=== PATIENT | female | born 1995 | race Caucasian/White ===

== ENCOUNTER → 2019-03-22 | Outpatient (REF) | payer OTHER, MEDICAID ==
[2019-03-22 13:38] LABS: BASO % 0.4 % (0.0-1.0); EOS # 0.1 10^3/uL (0.0-0.50); EOS % 1.7 % (0.0-3.0); HEMATOCRIT 40.5 % (36.0-47.0); HEMOGLOBIN 13.8 g/dl (12.0-15.5); LYMPH # 1.9 10^3/uL (1.5-6.5); LYMPH % 38.9 % (24.0-44.0); MEAN CORPUSCULAR HEMOGLOBIN 26.9 pg (27.0-33.0); MEAN CORPUSCULAR HGB CONC 34.1 g/dl (32.0-36.5); MEAN CORPUSCULAR VOLUME 78.9 fl (80.0-96.0); MONO # 0.4 10^3/uL (0.0-0.8); MONO % 8.3 % (0.0-5.0); NEUTROPHILS # 2.4 10^3/uL (1.8-7.7); NEUTROPHILS % 50.5 % (36.0-66.0); PLATELET COUNT, AUTOMATED 256 10^3/uL (150-450); RED BLOOD COUNT 5.13 10^6/uL (4.00-5.40); WHITE BLOOD COUNT 4.8 10^3/uL (4.0-10.0)
[2019-03-22 13:50] LABS: ALBUMIN 3.7 GM/DL (3.2-5.2); ALT/SGPT 14 U/L (12-78); BILIRUBIN,TOTAL 0.6 MG/DL (0.2-1.0); BLOOD UREA NITROGEN 8 MG/DL (7-18); CALCIUM LEVEL 8.2 MG/DL (8.5-10.1); CARBON DIOXIDE LEVEL 28 MEQ/L (21-32); CHLORIDE LEVEL 108 MEQ/L (98-107); CHOLESTEROL LEVEL 133 MG/DL (<200); CHOLESTEROL RISK RATIO 3.022 (<5); CREATININE FOR GFR 0.72 MG/DL (0.55-1.30); GLOMERULAR FILTRATION RATE > 60.0 (>60); GLUCOSE, FASTING 79 MG/DL (70-100); HDL CHOLESTEROL 44 MG/DL (>40); LDL CHOLESTEROL 75 MG/DL (<100); NON-HDL-C 89 MG/DL; POTASSIUM SERUM 4.2 MEQ/L (3.5-5.1); SODIUM LEVEL 140 MEQ/L (136-145); TOTAL PROTEIN 7.4 GM/DL (6.4-8.2); TRIGLYCERIDES LEVEL 68 MG/DL (<150)
[2019-03-22 13:57] LABS: TOTAL 25(OH) VITAMIN D 21.1 NG/ML (30.0-100.0)
[2019-03-22 14:16] LABS: HEMOGLOBIN A1c 4.9 %
[2019-03-22 14:35] LABS: APPEARANCE, URINE HAZY (CLEAR); BACTERIA, URINE AUTO NEGATIVE (NEGATIVE); BILIRUBIN, URINE AUTO NEGATIVE (NEGATIVE); BLOOD, URINE BLOOD 3+ (NEGATIVE); COLOR, URINE YELLOW (YELLOW); GLUCOSE, URINE (UA) AUTO NEGATIVE (NEGATIVE); KETONE, URINE AUTO NEGATIVE (NEGATIVE); LEUKOCYTE ESTERASE, URINE AUTO 1+ (NEGATIVE); MUCUS, URINE SMALL (NEGATIVE); NITRITE, URINE AUTO NEGATIVE (NEGATIVE); PROTEIN, URINE AUTO NEGATIVE (NEGATIVE); RBC, URINE AUTO 1 /HPF (0-3); SPECIFIC GRAVITY URINE AUTO 1.011 (1.002-1.035); SQUAMOUS EPITHELIAL CELL UR AU 6 /HPF (0-6); UROBILINOGEN, URINE AUTO 0.2 mg/dL (0.0-2.0); WBC, URINE AUTO 4 /HPF (0-3)
[2019-03-26 00:07] LABS: Lyme Disease IgG Ab 18 kDa Ban Absent (.); Lyme Disease IgG Ab 23 kDa Ban Absent (.); Lyme Disease IgG Ab 28 kDa Ban Absent (.); Lyme Disease IgG Ab 30 kDa Ban Absent (.); Lyme Disease IgG Ab 39 kDa Ban Absent (.); Lyme Disease IgG Ab 41 kDa Ban Present (.); Lyme Disease IgG Ab 45 kDa Ban Absent (.); Lyme Disease IgG Ab 58 kDa Ban Absent (.); Lyme Disease IgG Ab 66 kDa Ban Absent (.); Lyme Disease IgG Ab 93 kDa Ban Absent (.); Lyme Disease IgG West Blot Int Negative (.); Lyme Disease IgG/IgM Antibodie <0.91 ISR (0.00-0.90); Lyme Disease IgM Ab 23 kDa Ban Present (.); Lyme Disease IgM Ab 39 kDa Ban Absent (.); Lyme Disease IgM Ab 41 kDa Ban Absent (.); Lyme Disease IgM West Blot Int Negative (.)
== END ==
LOC: M LAB REF 12:24
PROVIDERS: ATTEND Family Medicine
DX: Z13.228 Encounter for screening for other metabolic disorders (principal)

== ENCOUNTER → 2019-06-25 | Outpatient (REF) | payer OTHER ==
[~2019-06-25] MED LIST: LEVO50TA5 PO; VITA500045 PO
== END ==
LOC: M LAB REF 13:56
PROVIDERS: ATTEND Advanced Practice Midwife
DX: Z12.4 Encounter for screening for malignant neoplasm of cervix (principal)

== ENCOUNTER → 2019-07-03 | Outpatient (REF) | payer OTHER, MEDICAID ==
[2019-07-03 17:52] LABS: ALBUMIN 3.8 GM/DL (3.2-5.2); ALT/SGPT 16 U/L (12-78); BASO % 0.6 % (0.0-1.0); BILIRUBIN,TOTAL 0.5 MG/DL (0.2-1.0); BLOOD UREA NITROGEN 12 MG/DL (7-18); CALCIUM LEVEL 8.7 MG/DL (8.5-10.1); CARBON DIOXIDE LEVEL 26 MEQ/L (21-32); CHLORIDE LEVEL 106 MEQ/L (98-107); CHOLESTEROL LEVEL 169 MG/DL (<200); CREATININE FOR GFR 0.64 MG/DL (0.55-1.30); EOS # 0.1 10^3/uL (0.0-0.5); FREE T4 1.13 NG/DL (0.76-1.46); GLOMERULAR FILTRATION RATE > 60.0 (>60); GLUCOSE, FASTING 80 MG/DL (70-100); HDL CHOLESTEROL 48 MG/DL (>40); HEMATOCRIT 40.8 % (36.0-47.0); HEMOGLOBIN 13.7 g/dl (12.0-15.5); LDL CHOLESTEROL 105 MG/DL (<100); LYMPH # 2.5 10^3/uL (1.5-5.0); LYMPH % 50.8 % (24.0-44.0); MEAN CORPUSCULAR HEMOGLOBIN 26.3 pg (27.0-33.0); MEAN CORPUSCULAR HGB CONC 33.6 g/dl (32.0-36.5); MEAN CORPUSCULAR VOLUME 78.3 fl (80.0-96.0); MONO # 0.4 10^3/uL (0.0-0.8); MONO % 7.2 % (0.0-5.0); NEUTROPHILS % 40.2 % (36.0-66.0); NON-HDL-C 121 MG/DL; PLATELET COUNT, AUTOMATED 269 10^3/uL (150-450); POTASSIUM SERUM 4.3 MEQ/L (3.5-5.1); RED BLOOD COUNT 5.21 10^6/uL (4.00-5.40); SODIUM LEVEL 140 MEQ/L (136-145); TOTAL 25(OH) VITAMIN D 63.4 NG/ML (30.0-100.0); TOTAL PROTEIN 7.2 GM/DL (6.4-8.2); TRIGLYCERIDES LEVEL 80 MG/DL (<150)
[2019-07-03 18:17] LABS: HEMOGLOBIN A1c 4.7 %
[2019-07-09 00:06] LABS: Lyme Disease IgG Ab 18 kDa Ban Present (.); Lyme Disease IgG Ab 23 kDa Ban Absent (.); Lyme Disease IgG Ab 28 kDa Ban Absent (.); Lyme Disease IgG Ab 30 kDa Ban Absent (.); Lyme Disease IgG Ab 39 kDa Ban Absent (.); Lyme Disease IgG Ab 41 kDa Ban Present (.); Lyme Disease IgG Ab 45 kDa Ban Absent (.); Lyme Disease IgG Ab 58 kDa Ban Absent (.); Lyme Disease IgG Ab 66 kDa Ban Absent (.); Lyme Disease IgG Ab 93 kDa Ban Absent (.); Lyme Disease IgG West Blot Int Negative (.); Lyme Disease IgG/IgM Antibodie <0.91 ISR (0.00-0.90); Lyme Disease IgM Ab 23 kDa Ban Present (.); Lyme Disease IgM Ab 39 kDa Ban Absent (.); Lyme Disease IgM Ab 41 kDa Ban Absent (.); Lyme Disease IgM Ab Quantitati 1.02 index (0.00-0.79); Lyme Disease IgM West Blot Int Negative (.)
== END ==
LOC: M LAB REF 16:44
PROVIDERS: ATTEND Family Medicine
DX: Z13.228 Encounter for screening for other metabolic disorders (principal)

== ENCOUNTER → 2019-09-03 | Outpatient (REF) | payer OTHER, MEDICAID ==
[2019-09-03 16:56] LABS: FREE T4 1.13 NG/DL (0.76-1.46); THYROID STIMULATING HORMONE 7.27 uIU/ML (0.358-3.740)
== END ==
LOC: M LAB REF 16:28
PROVIDERS: ATTEND Family Medicine
DX: E03.9 Hypothyroidism, unspecified (principal)

== ENCOUNTER → 2020-08-05 | Outpatient (CLI) | payer OTHER, MEDICAID ==
[~2020-08-05] MED LIST changes: +D31000TA2 PO
== END ==
LOC: M LABSMTC 13:06
PROVIDERS: ATTEND Anesthesiology
DX: Z01.812 Encounter for preprocedural laboratory examination (principal); Z20.828 Contact with and (suspected) exposure to other viral communicable diseases
CPT/HCPCS: C9803; U0003

== ENCOUNTER 2020-08-10 07:48 | Day surgery (SDC) | payer OTHER ==
[~2020-08-10] VITALS: Ht 162.6 cm; Wt 75.3 kg
[~2020-08-10 07:48] MED LIST changes: +LR 1,000 ML IV ONE
[2020-08-10] MEDS ORDERED: CIPRODEX OTIC SUSP 7.5ML As Ordered ONE (09:13)
[2020-08-10] MEDS ORDERED: MIDAZOLAM INJ 2MG/2ML VIAL (J2250 PER 1MG) As Ordered ONE (09:13)
[2020-08-10] MEDS ORDERED: propofoL 200 MG/20 ML VIAL As Ordered ONE (09:14)
[2020-08-10] MEDS ORDERED: fentaNYL 100 MCG/2 ML INJECTION (J3010) As Ordered ONE (09:14)
[2020-08-10] MEDS ORDERED: KETOROLAC 60MG 2ML VIAL As Ordered ONE (09:41)
[2020-08-10] MEDS ORDERED: ONDANSETRON 4MG/2ML VIAL As Ordered ONE (09:41)
[2020-08-10] MEDS ORDERED: dexameTHASONE 4 MG/ML 1ML VIAL (J1100 PER 1MG) As Ordered ONE (09:41)
[2020-08-10] MEDS ORDERED: oxyCODONE 5MG TAB PO PRN (10:15)
[2020-08-10] MEDS ORDERED: ONDANSETRON 4MG/2ML VIAL IV PRN (10:15)
[2020-08-10] MEDS ORDERED: fentaNYL 100 MCG/2 ML INJECTION (J3010) IV PRN (10:15)
[2020-08-10] MEDS ORDERED: LR 1,000 ML IV SCH (10:15)
[2020-08-10] MEDS ORDERED: HYDROMORPHONE HCL 0.5 MG/ 0.5 ML SYRINGE (J1170 PER 1) IV PRN (10:15)
[2020-08-10 10:46] VITALS: BP 142/97
[2020-08-10] MEDS ORDERED: IBUPROFEN 800 MG TAB PO PRN (11:15)
== END 2020-08-10 11:37 | disposition home or self-care (01) ==
LOC: M SDC 07:48
PROVIDERS: ATTEND Specialist
DX: H65.22 Chronic serous otitis media, left ear (principal); E03.9 Hypothyroidism, unspecified; F41.9 Anxiety disorder, unspecified; Z91.030 Bee allergy status; Z88.8 Allergy status to other drugs, medicaments and biological substances; Z91.018 Allergy to other foods; Z79.899 Other long term (current) drug therapy
CPT/HCPCS: 69436; 81025; J1100; J1885; J2250; J2405; J3010

== ENCOUNTER → 2020-09-07 | Outpatient (REF) | payer OTHER, MEDICAID ==
[~2020-09-07] MED LIST changes: -LR 1,000 ML IV ONE
[2020-09-07 18:14] LABS: BASO % 0.3 % (0.0-1.0); EOS # 0.1 10^3/uL (0.0-0.5); EOS % 1.6 % (0.0-3.0); HEMATOCRIT 42.4 % (36.0-47.0); HEMOGLOBIN 13.6 g/dl (12.0-15.5); LYMPH # 2.3 10^3/uL (1.5-5.0); LYMPH % 40.1 % (24.0-44.0); MEAN CORPUSCULAR HEMOGLOBIN 26.1 pg (27.0-33.0); MEAN CORPUSCULAR HGB CONC 32.1 g/dl (32.0-36.5); MEAN CORPUSCULAR VOLUME 81.2 fl (80.0-96.0); MONO # 0.5 10^3/uL (0.0-0.8); MONO % 7.8 % (0.0-5.0); NEUTROPHILS # 2.9 10^3/uL (1.5-8.5); NEUTROPHILS % 49.9 % (36.0-66.0); PLATELET COUNT, AUTOMATED 281 10^3/uL (150-450); RED BLOOD COUNT 5.22 10^6/uL (4.00-5.40); WHITE BLOOD COUNT 5.8 10^3/uL (4.0-10.0)
[2020-09-07 18:39] LABS: ALBUMIN 3.7 GM/DL (3.2-5.2); ALT/SGPT 8 U/L (12-78); BILIRUBIN,TOTAL 0.8 MG/DL (0.2-1.0); BLOOD UREA NITROGEN 11 MG/DL (7-18); CALCIUM LEVEL 8.8 MG/DL (8.5-10.1); CARBON DIOXIDE LEVEL 27 MEQ/L (21-32); CHLORIDE LEVEL 106 MEQ/L (98-107); CHOLESTEROL LEVEL 177 MG/DL (<200); CHOLESTEROL RISK RATIO 3.847 (<5); CREATININE FOR GFR 0.76 MG/DL (0.55-1.30); GLOMERULAR FILTRATION RATE > 60.0 (>60); GLUCOSE, FASTING 84 MG/DL (70-100); HDL CHOLESTEROL 46 MG/DL (>40); LDL CHOLESTEROL 110 MG/DL (<100); NON-HDL-C 131 MG/DL; POTASSIUM SERUM 4.8 MEQ/L (3.5-5.1); SODIUM LEVEL 138 MEQ/L (136-145); TOTAL PROTEIN 7.3 GM/DL (6.4-8.2); TRIGLYCERIDES LEVEL 104 MG/DL (<150)
== END ==
LOC: M LAB REF 16:37
PROVIDERS: ATTEND Family Medicine Addiction Medicine
DX: E03.9 Hypothyroidism, unspecified (principal)

== ENCOUNTER → 2021-03-04 | Outpatient (REF) | payer OTHER ==
[2021-03-04 13:49] LABS: HEMATOCRIT 38.1 % (36.0-47.0); MEAN CORPUSCULAR HEMOGLOBIN 27.7 pg (27.0-33.0); MEAN CORPUSCULAR HGB CONC 34.1 g/dl (32.0-36.5); MEAN CORPUSCULAR VOLUME 81.2 fl (80.0-96.0); PLATELET COUNT, AUTOMATED 265 10^3/uL (150-450); RED BLOOD COUNT 4.69 10^6/uL (4.00-5.40); WHITE BLOOD COUNT 5.7 10^3/uL (4.0-10.0)
[2021-03-04 14:40] LABS: FREE T4 1.23 NG/DL (0.76-1.46)
[2021-03-04 16:39] LABS: HIV 1&2 SCREEN CENTAUR NEGATIVE (NEGATIVE)
== END ==
LOC: M PLALAB 11:04
PROVIDERS: ATTEND Advanced Practice Midwife
DX: O99.281 Endocrine, nutritional and metabolic diseases complicating pregnancy, first trimester (principal)

== ENCOUNTER → 2021-04-08 | Outpatient (REF) | payer OTHER ==
[2021-04-08 11:24] LABS: FREE T4 1.18 NG/DL (0.76-1.46); THYROID STIMULATING HORMONE 3.83 uIU/ML (0.358-3.740)
[2021-04-08 12:29] LABS: GC DNA AMPLIFICATION NEGATIVE (NEGATIVE)
== END ==
LOC: M PLALAB 09:12
PROVIDERS: ATTEND Advanced Practice Midwife
DX: O99.281 Endocrine, nutritional and metabolic diseases complicating pregnancy, first trimester (principal)

== ENCOUNTER → 2021-05-20 | Outpatient (CLI) | payer OTHER ==
--- NOTE | 2021-05-20 11:16 | REP ---
INDICATION: ANATOMY. COMPARISON: None. TECHNIQUE: Transabdominal obstetric sonography. FINDINGS: Scanning through the gravid uterus demonstrates a viable single intrauterine gestation in variable lie. motion is observed and heart rate is recorded at 140 beats per minute. A anterior placenta is seen, grade 1, without evidence of placenta previa. Closed cervical length is measured at 4.4 cm transabdominally. No extrauterine abnormality is observed. Amniotic fluid is subjectively normal. No anomaly is seen. The following anatomic structures are identified and felt to be sonographically unremarkable: cranium, choroid plexus, cavum, cerebellum and posterior fossa, face and profile, lungs, four-chamber heart with left and right ventricular outflow tract views, diaphragm, left-sided stomach, abdominal wall cord insertion, three-vessel umbilical cord, kidneys and bladder, spine, and upper and lower extremities. Biometry chart: BPD 4.4 cm, 19 weeks 3 days Head circumference 16.8 cm, 19 weeks 3 days Abdominal circumference 14.4 cm, 19 weeks 5 days Femur length 3.0 cm, 19 weeks 1 day Humeral length 3.0 cm, 19 weeks 5 days HC AC ratio normal 1.17 Cephalic index normal 0.72 Estimated weight 292 g, 0 lb 10 oz IMPRESSION: Viable single intrauterine gestation at 19 weeks 3 days by today's composite sonographic criteria. CHERI by today's sonography October 11, 2021. No complication identified. Expected gestational age estimate from known CHERI of October 12, 2021 is 19 weeks 2 days. anatomic survey is felt to be complete. <Electronically signed by Antonio Martinez > 05/20/21 [id number]
== END ==
LOC: M WHC 09:56
PROVIDERS: ATTEND Advanced Practice Midwife
DX: O99.282 Endocrine, nutritional and metabolic diseases complicating pregnancy, second trimester (principal); Z3A.19 19 weeks gestation of pregnancy

== ENCOUNTER → 2021-06-08 | Outpatient (REF) | payer OTHER | LOC: M PLALAB 11:07 | PROVIDERS: ATTEND Obstetrics & Gynecology | DX: Z36.89 Encounter for other specified antenatal screening (principal); Z3A.22 22 weeks gestation of pregnancy ==

== ENCOUNTER → 2021-07-06 | Outpatient (CLI) | payer OTHER | LOC: M PLALAB 11:22 | PROVIDERS: ATTEND Advanced Practice Midwife | DX: O99.280 Endocrine, nutritional and metabolic diseases complicating pregnancy, unspecified trimester (principal) ==

== ENCOUNTER → 2021-07-06 | Outpatient (CLI) | payer OTHER ==
[2021-07-06 15:22] LABS: HEMATOCRIT 34.4 % (36.0-47.0); HEMOGLOBIN 11.7 g/dl (12.0-15.5); MEAN CORPUSCULAR HEMOGLOBIN 28.1 pg (27.0-33.0); MEAN CORPUSCULAR VOLUME 82.7 fl (80.0-96.0); PLATELET COUNT, AUTOMATED 236 10^3/uL (150-450); RED BLOOD COUNT 4.16 10^6/uL (4.00-5.40); WHITE BLOOD COUNT 7.2 10^3/uL (4.0-10.0)
[2021-07-06 15:53] LABS: FREE T4 1.23 NG/DL (0.76-1.46); THYROID STIMULATING HORMONE 1.38 uIU/ML (0.358-3.740)
== END ==
LOC: M PLALAB 11:19
PROVIDERS: ATTEND Obstetrics & Gynecology
DX: Z36.89 Encounter for other specified antenatal screening (principal); Z3A.22 22 weeks gestation of pregnancy

== ENCOUNTER → 2021-07-27 | Outpatient (CLI) | payer OTHER | LOC: M LAB 08:27 | PROVIDERS: ATTEND Advanced Practice Midwife | DX: O99.810 Abnormal glucose complicating pregnancy (principal); Z3A.00 Weeks of gestation of pregnancy not specified ==

== ENCOUNTER → 2021-09-13 | Outpatient (REF) | payer OTHER | LOC: M SFHCWAGY 13:12 | PROVIDERS: ATTEND Advanced Practice Midwife | DX: Z36.85 Encounter for antenatal screening for Streptococcus B (principal); O99.280 Endocrine, nutritional and metabolic diseases complicating pregnancy, unspecified trimester; Z3A.00 Weeks of gestation of pregnancy not specified ==

== ENCOUNTER 2021-09-29 21:57 | Inpatient (IN) | payer OTHER ==
[~2021-09-29] VITALS: Ht 162.6 cm; Wt 89.0 kg
[2021-09-29] MEDS ORDERED: CARBOPROST TROMETHAMINE 250 MCG/ML AMP IM PRN (22:10)
[2021-09-29] MEDS ORDERED: METHYLERGONOVINE MALEATE 0.2 MG/ML VIAL (J2210) IM PRN (22:10)
[2021-09-29] MEDS ORDERED: OXYTOCIN DRIP 30 UNITS in IV 1 EA IV PRN (22:10)
[2021-09-29] MEDS ORDERED: LIDOCAINE 1% MDV 20ML VIAL INFIL PRN (22:10)
[2021-09-29] MEDS ORDERED: TRANEXAMIC ACID INJection 1,000 MG in NS 100 ML IV PRN (22:10)
[2021-09-29 22:38] LABS: HEMATOCRIT 36.5 % (36.0-47.0); HEMOGLOBIN 12.4 g/dl (12.0-15.5); MEAN CORPUSCULAR HEMOGLOBIN 26.8 pg (27.0-33.0); MEAN CORPUSCULAR VOLUME 78.8 fl (80.0-96.0); PLATELET COUNT, AUTOMATED 224 10^3/uL (150-450); RED BLOOD COUNT 4.63 10^6/uL (4.00-5.40); WHITE BLOOD COUNT 8.5 10^3/uL (4.0-10.0)
[2021-09-29 22:51] VITALS: BP 176/97
[2021-09-29] MEDS ORDERED: LABETALOL 100MG/20ML VIAL IV STA (22:52)
[2021-09-29 22:58] VITALS: BP 176/97
[2021-09-29 23:02] LABS: ALT/SGPT 16 U/L (12-78); BILIRUBIN,TOTAL 0.3 MG/DL (0.2-1.0); CREATININE FOR GFR 0.54 MG/DL (0.55-1.30); GLOMERULAR FILTRATION RATE > 60.0 (>60); LDH LACTATE DEHYDROGENASE 156 U/L (84-246); URIC ACID 3.5 MG/DL (2.6-6.0)
[2021-09-29 23:08] VITALS: BP 141/74
[2021-09-29 23:27] VITALS: BP 130/72
[2021-09-29] MEDS: miSOPROStol 50MCG 1/2 TABLET PO SCH (23:29)
[2021-09-29 23:59] VITALS: BP 147/69
[2021-09-30] VITALS (28 sets, daily range): BP systolic 126–173; BP diastolic 65–93
[2021-09-30 00:11] LABS: TOTAL PROTEIN,RANDOM URINE 28.1 MG/DL (0.0-12.0)
[2021-09-30] MEDS: miSOPROStol 50MCG 1/2 TABLET PO SCH ×3 (03:35→13:05)
[2021-09-30] MEDS ORDERED: LEVOTHYROXINE 125MCG TABLET (0.125MG) PO SCH (06:00)
[2021-09-30] MEDS ORDERED: LR 1,000 ML IV SCH (16:15)
[2021-09-30] MEDS ORDERED: OXYTOCIN DRIP 30 UNITS in IV 1 EA IV SCH (16:15)
[2021-09-30] MEDS ORDERED: ACETAMINOPHEN 500 MG TAB PO PRN (20:25)
[2021-09-30] MEDS ORDERED: DIBUCAINE 1% OINTMENT 30GM TOP PRN (20:25)
[2021-09-30] MEDS ORDERED: OXYTOCIN DRIP 30 UNITS in IV 1 EA IV ONE (20:25)
[2021-09-30] MEDS ORDERED: ACETAMINOPHEN TAB 650MG DOSE (2X325MG) PO PRN (20:25)
[2021-09-30] MEDS ORDERED: RHOGAM 300 MCG (1500 IU) INJ (J2790) IM SCH (20:25)
[2021-09-30] MEDS ORDERED: METHYLERGONOVINE MALEATE 0.2 MG TAB PO PRN (20:25)
[2021-09-30] MEDS ORDERED: DOCUSATE SODIUM 100MG CAPSULE PO PRN (20:25)
[2021-09-30] MEDS ORDERED: MEASLES,MUMPS,RUBELLA VACCINE INJ (MMR-II) (90707) SC SCH (20:25)
[2021-09-30] MEDS ORDERED: IBUPROFEN 600MG TAB PO PRN (20:25)
[2021-09-30] MEDS: IBUPROFEN 800 MG TAB PO PRN (20:46)
[2021-09-30] MEDS ORDERED: NALOXONE INJ 0.4MG/1ML VIAL (J2310 PER 1MG) IV PRN (20:55)
[2021-09-30] MEDS ORDERED: REFRIGERATOR IV KEYS XX PRN (20:55)
[2021-09-30] MEDS ORDERED: ONDANSETRON 4MG/2ML VIAL IV PRN (20:55)
[2021-09-30] MEDS ORDERED: LACTATED RINGER'S 1000 ML IV PRN (20:55)
[2021-09-30] MEDS ORDERED: EPIDURAL/PCA KEYS XX PRN (20:55)
[2021-09-30] MEDS ORDERED: ePHEDrine SULFATE 25 MG/5 ML(5MG/ML) SYRINGE IV PRN (20:55)
[2021-09-30] MEDS ORDERED: FENTANYL/ROPIVACAINE/NACL BAG 100 ML EPIDURAL SCH (20:55)
[2021-09-30] MEDS ORDERED: EPIDURAL COMMENT XX SCH (20:55)
[2021-09-30] MEDS ORDERED: diphenhydrAMINE 50MG/ML VIAL (J1200) IV PRN (20:55)
[2021-10-01] MEDS: LEVOTHYROXINE 125MCG TABLET (0.125MG) PO SCH (05:43)
[2021-10-01 06:00] VITALS: BP 126/79
[2021-10-01] MEDS: PRENATAL VITAMINS CHEWABLE TABLET PO SCH (09:31)
[2021-10-01] MEDS: IBUPROFEN 800 MG TAB PO PRN (09:32)
[2021-10-01 18:00] VITALS: BP 142/70
[2021-10-02 06:00] VITALS: BP 137/86
[2021-10-02] MEDS: LEVOTHYROXINE 125MCG TABLET (0.125MG) PO SCH (06:12)
[2021-10-02] MEDS: PRENATAL VITAMINS CHEWABLE TABLET PO SCH (10:20)
== END 2021-10-02 13:10 | disposition home or self-care (01) | DRG 560 ==
LOC: M LDI 21:57 → M OBS 09-30 22:30
PROVIDERS: ADMIT Advanced Practice Midwife; ATTEND Specialist
PROC: 3E0P7GC Introduction of Other Therapeutic Substance into Female Reproductive, Via Natural or Artificial Opening (ICD-10-PCS; 2021-09-29)
PROC: 10E0XZZ Delivery of Products of Conception, External Approach (ICD-10-PCS; principal; 2021-09-30)
DX: O14.14 Severe pre-eclampsia complicating childbirth (principal); E03.9 Hypothyroidism, unspecified; O99.284 Endocrine, nutritional and metabolic diseases complicating childbirth; Z37.0 Single live birth; Z3A.38 38 weeks gestation of pregnancy

== ENCOUNTER → 2022-06-24 | Outpatient (REF) | payer OTHER ==
[~2022-06-24] MED LIST changes: -D31000TA2 PO; +VITA100093 PO
== END ==
LOC: M LAB REF 16:16
PROVIDERS: ATTEND Family Medicine Addiction Medicine
DX: R30.9 Painful micturition, unspecified (principal)

== ENCOUNTER → 2022-12-13 | Outpatient (REF) | payer OTHER | LOC: M SFHCRHEU 13:50 | PROVIDERS: ATTEND Internal Medicine Rheumatology | DX: R76.8 Other specified abnormal immunological findings in serum (principal); M35.3 Polymyalgia rheumatica; H04.123 Dry eye syndrome of bilateral lacrimal glands; L65.9 Nonscarring hair loss, unspecified ==

== ENCOUNTER → 2022-12-14 | Outpatient (REF) | payer OTHER ==
[2022-12-14 16:34] LABS: BASO % 0.4 % (0.0-1.0); EOS # 0.1 10^3/uL (0.0-0.5); EOS % 1.2 % (0.0-3.0); HEMATOCRIT 40.1 % (36.0-47.0); HEMOGLOBIN 13.2 g/dl (12.0-15.5); LDH LACTATE DEHYDROGENASE 117 U/L (120-246); LYMPH # 2.8 10^3/uL (1.5-5.0); LYMPH % 38.6 % (24.0-44.0); MEAN CORPUSCULAR HGB CONC 32.9 g/dl (32.0-36.5); MEAN CORPUSCULAR VOLUME 79.1 fl (80.0-96.0); MONO # 0.4 10^3/uL (0.0-0.8); MONO % 5.9 % (2.0-8.0); NEUTROPHILS # 3.9 10^3/uL (1.5-8.5); NEUTROPHILS % 53.5 % (36.0-66.0); PLATELET COUNT, AUTOMATED 299 10^3/uL (150-450); RED BLOOD COUNT 5.07 10^6/uL (4.00-5.40); WHITE BLOOD COUNT 7.3 10^3/uL (4.0-10.0)
[2022-12-14 17:01] LABS: ERYTHROCYTE SEDIMENTATION RATE 24 mm/hr (0-20)
[2022-12-14 17:02] LABS: ALBUMIN 3.5 G/DL (3.2-5.2); ALKALINE PHOSPHATASE 58 U/L (46-116); ALT/SGPT 25 U/L (7.0-40); AST/SGOT 15 U/L (<34); BILIRUBIN,TOTAL 0.4 MG/DL (0.3-1.2); BLOOD UREA NITROGEN 11 MG/DL (9-23); CARBON DIOXIDE LEVEL 26 MMOL/L (20-31); CHLORIDE LEVEL 105 MMOL/L (98-107); CREATININE FOR GFR 0.65 MG/DL (0.55-1.30); GLOMERULAR FILTRATION RATE > 60.0 (>60); GLUCOSE, FASTING 95 MG/DL (60-100); POTASSIUM SERUM 4.3 MMOL/L (3.5-5.1); SODIUM LEVEL 137 MMOL/L (136-145)
[2022-12-14 19:05] LABS: CPK CREATINE PHOSPHOKINASE 55 U/L (34-145)
== END ==
LOC: M SFHCRHEU 14:12
PROVIDERS: ATTEND Internal Medicine Rheumatology
DX: R76.8 Other specified abnormal immunological findings in serum (principal); M35.3 Polymyalgia rheumatica; L65.9 Nonscarring hair loss, unspecified

== ENCOUNTER → 2022-12-14 | Outpatient (CLI) | payer OTHER | LOC: M ADAMS 14:16 | PROVIDERS: ATTEND Internal Medicine Rheumatology | DX: R76.8 Other specified abnormal immunological findings in serum (principal); M35.3 Polymyalgia rheumatica; H04.123 Dry eye syndrome of bilateral lacrimal glands; L65.9 Nonscarring hair loss, unspecified ==

== ENCOUNTER → 2023-08-02 | Outpatient (REF) | payer OTHER ==
[2023-08-02 13:34] LABS: BASO % 0.3 % (0.0-1.0); EOS # 0.1 10^3/uL (0.0-0.5); EOS % 1.4 % (0.0-3.0); HEMATOCRIT 39.9 % (36.0-47.0); HEMOGLOBIN 13.3 g/dl (12.0-15.5); LYMPH # 2.3 10^3/uL (1.5-5.0); LYMPH % 30.9 % (24.0-44.0); MEAN CORPUSCULAR HEMOGLOBIN 26.5 pg (27.0-33.0); MEAN CORPUSCULAR HGB CONC 33.3 g/dl (32.0-36.5); MEAN CORPUSCULAR VOLUME 79.5 fl (80.0-96.0); MONO # 0.6 10^3/uL (0.0-0.8); MONO % 7.5 % (2.0-8.0); NEUTROPHILS # 4.4 10^3/uL (1.5-8.5); NEUTROPHILS % 59.8 % (36.0-66.0); PLATELET COUNT, AUTOMATED 293 10^3/uL (150-450); RED BLOOD COUNT 5.02 10^6/uL (4.00-5.40); WHITE BLOOD COUNT 7.3 10^3/uL (4.0-10.0)
[2023-08-02 13:36] LABS: APPEARANCE, URINE CLOUDY (CLEAR); BACTERIA, URINE AUTO 1+ (NEGATIVE); BILIRUBIN, URINE AUTO NEGATIVE (NEGATIVE); BLOOD, URINE BLOOD 1+ (NEGATIVE); COLOR, URINE AMBER (YELLOW); GLUCOSE, URINE (UA) AUTO NEGATIVE (NEGATIVE); KETONE, URINE AUTO TRACE mg/dL (NEGATIVE); LEUKOCYTE ESTERASE, URINE AUTO 3+ (NEGATIVE); MUCUS, URINE SMALL (NEGATIVE); NITRITE, URINE AUTO NEGATIVE (NEGATIVE); PROTEIN, URINE AUTO NEGATIVE (NEGATIVE); RBC, URINE AUTO 7 /HPF (0-3); SPECIFIC GRAVITY URINE AUTO 1.025 (1.002-1.035); SQUAMOUS EPITHELIAL CELL UR AU 38 /HPF (0-6); WBC, URINE AUTO 44 /HPF (0-3)
[2023-08-02 13:39] LABS: ALBUMIN 3.4 G/DL (3.2-5.2); ALKALINE PHOSPHATASE 62 U/L (46-116); ALT/SGPT 12 U/L (7.0-40); AST/SGOT < 8 U/L (<34); BILIRUBIN,TOTAL 0.4 MG/DL (0.3-1.2); BLOOD UREA NITROGEN 9 MG/DL (9-23); CALCIUM LEVEL 8.5 MG/DL (8.5-10.1); CARBON DIOXIDE LEVEL 27 MMOL/L (20-31); CHLORIDE LEVEL 107 MMOL/L (98-107); COMPLEMENT C3 111.6 MG/DL (84.0-160.0); COMPLEMENT C4 23.4 MG/DL (12-36); CREATININE FOR GFR 0.67 MG/DL (0.55-1.30); GLOMERULAR FILTRATION RATE > 60.0 (>60); GLUCOSE, FASTING 85 MG/DL (60-100); POTASSIUM SERUM 4.6 MMOL/L (3.5-5.1); SODIUM LEVEL 137 MMOL/L (136-145); TOTAL PROTEIN 7.1 G/DL (5.7-8.2)
[2023-08-02 13:47] LABS: ERYTHROCYTE SEDIMENTATION RATE 32 mm/hr (0-20)
[2023-08-02 13:51] LABS: TOTAL PROTEIN,RANDOM URINE 23.9 MG/DL (0.0-14.0)
[2023-08-02 13:56] LABS: CREATININE,RANDOM URINE 178.7 MG/DL
== END ==
LOC: M SFHCADAM 08:12
PROVIDERS: ATTEND Internal Medicine Rheumatology
DX: R76.8 Other specified abnormal immunological findings in serum (principal)

== ENCOUNTER → 2023-08-10 | Outpatient (REF) | payer OTHER ==
[2023-08-10 14:05] LABS: APPEARANCE, URINE CLEAR (CLEAR); BACTERIA, URINE AUTO NEGATIVE (NEGATIVE); BILIRUBIN, URINE AUTO NEGATIVE (NEGATIVE); BLOOD, URINE BLOOD 1+ (NEGATIVE); COLOR, URINE YELLOW (YELLOW); GLUCOSE, URINE (UA) AUTO NEGATIVE (NEGATIVE); KETONE, URINE AUTO NEGATIVE (NEGATIVE); LEUKOCYTE ESTERASE, URINE AUTO 1+ (NEGATIVE); NITRITE, URINE AUTO NEGATIVE (NEGATIVE); PROTEIN, URINE AUTO NEGATIVE (NEGATIVE); RBC, URINE AUTO 1 /HPF (0-3); SPECIFIC GRAVITY URINE AUTO 1.009 (1.002-1.035); SQUAMOUS EPITHELIAL CELL UR AU 4 /HPF (0-6); UROBILINOGEN, URINE AUTO 0.2 mg/dL (0.0-2.0); WBC, URINE AUTO 3 /HPF (0-3)
== END ==
LOC: M SFHCADAM 09:41
PROVIDERS: ATTEND Internal Medicine Rheumatology
DX: R76.8 Other specified abnormal immunological findings in serum (principal); R82.90 Unspecified abnormal findings in urine; R79.82 Elevated C-reactive protein (CRP)

== ENCOUNTER → 2023-08-16 | Outpatient (REF) | payer OTHER | LOC: M LAB REF 16:17 | PROVIDERS: ATTEND Nurse Practitioner Family | DX: R30.0 Dysuria (principal) ==

== ENCOUNTER → 2023-09-29 | Outpatient (REF) | payer OTHER ==
[2023-09-29 14:53] LABS: C REACTIVE PROTEIN QUANTITATIV < 0.40 MG/DL (<1.0)
[2023-09-29 14:58] LABS: THYROID STIMULATING HORMONE 2.161 uIU/ML (0.55-4.78); TOTAL 25(OH) VITAMIN D 31.1 NG/ML (20.0-100.0)
[2023-09-29 15:28] LABS: HEMOGLOBIN A1c 4.8 % (4.0-6.0)
== END ==
LOC: M LAB REF 12:25
PROVIDERS: ATTEND Pediatrics
DX: E55.9 Vitamin D deficiency, unspecified (principal); M25.50 Pain in unspecified joint; E03.9 Hypothyroidism, unspecified; Z86.32 Personal history of gestational diabetes; R79.82 Elevated C-reactive protein (CRP)

== ENCOUNTER → 2023-12-07 | Outpatient (CLI) | payer OTHER | LOC: M CARPUL 11:28 | PROVIDERS: ATTEND Pediatrics | DX: R01.1 Cardiac murmur, unspecified (principal); I35.0 Nonrheumatic aortic (valve) stenosis ==

== ENCOUNTER → 2024-01-11 | Outpatient (REF) | payer OTHER ==
[2024-01-11 13:59] LABS: CHOLESTEROL RISK RATIO 3.38 (<5); HDL CHOLESTEROL 47.9 MG/DL (>40); LDL CHOLESTEROL 87.3 MG/DL (<100); NON-HDL-C 114.1 MG/DL
[2024-01-11 14:02] LABS: THYROID STIMULATING HORMONE 0.285 uIU/ML (0.55-4.78)
== END ==
LOC: M LAB REF 12:38
PROVIDERS: ATTEND Pediatrics
DX: E03.9 Hypothyroidism, unspecified (principal)

== ENCOUNTER → 2024-01-18 | Outpatient (REF) | payer OTHER ==
[2024-01-18 12:26] LABS: APPEARANCE, URINE HAZY (CLEAR); BACTERIA, URINE AUTO NEGATIVE (NEGATIVE); BILIRUBIN, URINE AUTO NEGATIVE (NEGATIVE); BLOOD, URINE BLOOD 2+ (NEGATIVE); COLOR, URINE YELLOW (YELLOW); GLUCOSE, URINE (UA) AUTO NEGATIVE (NEGATIVE); KETONE, URINE AUTO NEGATIVE (NEGATIVE); LEUKOCYTE ESTERASE, URINE AUTO NEGATIVE (NEGATIVE); MUCUS, URINE SMALL (NEGATIVE); NITRITE, URINE AUTO NEGATIVE (NEGATIVE); PROTEIN, URINE AUTO NEGATIVE (NEGATIVE); RBC, URINE AUTO 1 /HPF (0-3); SPECIFIC GRAVITY URINE AUTO 1.018 (1.002-1.035); SQUAMOUS EPITHELIAL CELL UR AU 3 /HPF (0-6); WBC, URINE AUTO 1 /HPF (0-3)
[2024-01-18 12:41] LABS: BASO % 0.6 % (0.0-1.0); EOS # 0.1 10^3/uL (0.0-0.5); EOS % 1.9 % (0.0-3.0); HEMATOCRIT 38.8 % (36.0-47.0); HEMOGLOBIN 13.2 g/dl (12.0-15.5); LYMPH # 2.3 10^3/uL (1.5-5.0); LYMPH % 47.5 % (24.0-44.0); MEAN CORPUSCULAR HEMOGLOBIN 26.5 pg (27.0-33.0); MEAN CORPUSCULAR VOLUME 77.9 fl (80.0-96.0); MONO # 0.4 10^3/uL (0.0-0.8); MONO % 7.4 % (2.0-8.0); NEUTROPHILS % 42.4 % (36.0-66.0); PLATELET COUNT, AUTOMATED 297 10^3/uL (150-450); RED BLOOD COUNT 4.98 10^6/uL (4.00-5.40); WHITE BLOOD COUNT 4.7 10^3/uL (4.0-10.0)
[2024-01-18 12:49] LABS: ERYTHROCYTE SEDIMENTATION RATE 24 mm/hr (0-20)
[2024-01-18 13:07] LABS: TOTAL PROTEIN,RANDOM URINE 14.7 MG/DL (0.0-14.0)
[2024-01-18 13:12] LABS: CREATININE,RANDOM URINE 138.6 MG/DL
[2024-01-18 13:16] LABS: ALBUMIN 3.3 G/DL (3.2-5.2); ALKALINE PHOSPHATASE 64 U/L (46-116); ALT/SGPT 20 U/L (7.0-40); AST/SGOT 13 U/L (<34); BILIRUBIN,TOTAL 0.3 MG/DL (0.3-1.2); BLOOD UREA NITROGEN 9 MG/DL (9-23); CALCIUM LEVEL 8.3 MG/DL (8.5-10.1); CARBON DIOXIDE LEVEL 30 MMOL/L (20-31); CHLORIDE LEVEL 106 MMOL/L (98-107); CREATININE FOR GFR 0.64 MG/DL (0.55-1.30); GLOMERULAR FILTRATION RATE > 60.0 (>60); GLUCOSE, FASTING 74 MG/DL (60-100); POTASSIUM SERUM 4.2 MMOL/L (3.5-5.1); SODIUM LEVEL 138 MMOL/L (136-145); TOTAL PROTEIN 6.7 G/DL (5.7-8.2)
[2024-01-18 14:40] LABS: COMPLEMENT C3 140.6 MG/DL (84.0-160.0); COMPLEMENT C4 24.6 MG/DL (12-36)
[2024-01-19 15:08] LABS: COMPLEMENT TOTAL (CH50) > 60 U/mL (>41)
== END ==
LOC: M SFHCRHEU 09:40
PROVIDERS: ATTEND Internal Medicine Rheumatology
DX: R76.8 Other specified abnormal immunological findings in serum (principal); M35.3 Polymyalgia rheumatica; L65.9 Nonscarring hair loss, unspecified; R68.2 Dry mouth, unspecified; R51.9 Headache, unspecified; R79.82 Elevated C-reactive protein (CRP)

== ENCOUNTER → 2024-02-01 | Outpatient (CLI) | payer OTHER | LOC: M RAD 07:15 | PROVIDERS: ATTEND Internal Medicine Rheumatology | DX: R76.8 Other specified abnormal immunological findings in serum (principal); M35.3 Polymyalgia rheumatica; L65.9 Nonscarring hair loss, unspecified; R68.2 Dry mouth, unspecified; R51.9 Headache, unspecified; R79.82 Elevated C-reactive protein (CRP); M25.451 Effusion, right hip; M25.452 Effusion, left hip; R93.7 Abnormal findings on diagnostic imaging of other parts of musculoskeletal system ==

== ENCOUNTER → 2024-04-18 | Outpatient (REF) | payer OTHER ==
[2024-04-20 13:37] LABS: HPV APTIMA Not Detected (Not Detected)
== END ==
LOC: M SFHCWAGY 12:34
PROVIDERS: ATTEND Nurse Practitioner Family
DX: Z12.4 Encounter for screening for malignant neoplasm of cervix (principal)

== ENCOUNTER → 2024-04-26 | Outpatient (REF) | payer OTHER ==
[2024-04-29 13:18] LABS: RUBEOLA IgG ANTIBODY > 300.00 AU/mL (>16.49)
[2024-04-29 15:53] LABS: QuantiFERON-TB Gold Plus NEGATIVE (NEGATIVE)
== END ==
LOC: M LAB REF 12:18
PROVIDERS: ATTEND Pediatrics
DX: Z01.84 Encounter for antibody response examination (principal); Z11.7 Encounter for testing for latent tuberculosis infection

== ENCOUNTER → 2024-05-09 | Outpatient (CLI) | payer OTHER | LOC: M RAD 11:42 | PROVIDERS: ATTEND Nurse Practitioner Family | DX: N94.10 Unspecified dyspareunia (principal); N83.01 Follicular cyst of right ovary ==

== ENCOUNTER → 2024-07-09 | Outpatient (REF) | payer OTHER ==
[2024-07-09 19:41] LABS: BASO % 0.4 % (0.0-1.0); EOS # 0.1 10^3/uL (0.0-0.5); EOS % 1.3 % (0.0-3.0); HEMATOCRIT 40.1 % (36.0-47.0); HEMOGLOBIN 13.4 g/dl (12.0-15.5); LYMPH # 2.6 10^3/uL (1.5-5.0); MEAN CORPUSCULAR HGB CONC 33.4 g/dl (32.0-36.5); MEAN CORPUSCULAR VOLUME 80.7 fl (80.0-96.0); MONO # 0.5 10^3/uL (0.0-0.8); MONO % 6.7 % (2.0-8.0); NEUTROPHILS # 3.6 10^3/uL (1.5-8.5); NEUTROPHILS % 53.3 % (36.0-66.0); PLATELET COUNT, AUTOMATED 295 10^3/uL (150-450); RED BLOOD COUNT 4.97 10^6/uL (4.00-5.40); WHITE BLOOD COUNT 6.7 10^3/uL (4.0-10.0)
== END ==
LOC: M LAB REF 16:45
PROVIDERS: ATTEND Pediatrics
DX: E03.9 Hypothyroidism, unspecified (principal)

== ENCOUNTER 2024-09-06 07:41 | Outpatient (RCR) | payer OTHER | END 2024-09-21 | LOC: M PT 07:41 | PROVIDERS: ATTEND Nurse Practitioner Family | DX: N94.10 Unspecified dyspareunia (principal) ==

== ENCOUNTER → 2024-09-12 | Outpatient (REF) | payer OTHER | LOC: M LAB REF 16:47 | PROVIDERS: ATTEND Pediatrics | DX: E03.9 Hypothyroidism, unspecified (principal) ==

== ENCOUNTER 2024-10-03 08:30 | Outpatient (RCR) | payer OTHER | END 2024-10-22 | LOC: M PT 08:30 | PROVIDERS: ATTEND Nurse Practitioner Family | DX: N94.10 Unspecified dyspareunia (principal) ==

== ENCOUNTER → 2024-10-03 | Outpatient (REF) | payer OTHER ==
[2024-10-03 13:55] LABS: Trichomonas vaginalis (AMP) NOT DETECTED (NEGATIVE)
[2024-10-03 14:19] LABS: GC DNA AMPLIFICATION NEGATIVE (NEGATIVE)
== END ==
LOC: M LAB REF 12:32
PROVIDERS: ATTEND Physician Assistant
DX: R30.0 Dysuria (principal)

== ENCOUNTER → 2024-10-10 | Outpatient (REF) | payer OTHER | LOC: M LAB REF 16:28 | PROVIDERS: ATTEND Physician Assistant | DX: R30.0 Dysuria (principal) ==

== ENCOUNTER 2024-10-25 10:11 | Outpatient (RCR) | payer OTHER | END 2024-11-22 | LOC: M PT 10:11 | PROVIDERS: ATTEND Nurse Practitioner Family | DX: N94.10 Unspecified dyspareunia (principal) ==

== ENCOUNTER → 2024-12-19 | Outpatient (CLI) | payer OTHER | LOC: M WUC 13:44 | PROVIDERS: ATTEND Nurse Practitioner Family | DX: M79.661 Pain in right lower leg (principal); M25.571 Pain in right ankle and joints of right foot ==

== ENCOUNTER → 2025-02-14 | Outpatient (REF) | payer OTHER ==
[2025-02-14 15:06] LABS: BLOOD UREA NITROGEN 10 MG/DL (9-23); CALCIUM LEVEL 8.3 MG/DL (8.5-10.1); CARBON DIOXIDE LEVEL 28 MMOL/L (20-31); CHLORIDE LEVEL 102 MMOL/L (98-107); CREATININE FOR GFR 0.61 MG/DL (0.55-1.30); GLOMERULAR FILTRATION RATE > 90.0 (>60); GLUCOSE, FASTING 88 MG/DL (60-100); POTASSIUM SERUM 4.2 MMOL/L (3.5-5.1); SODIUM LEVEL 137 MMOL/L (136-145)
[2025-02-14 15:07] LABS: FREE T4 1.48 NG/DL (0.89-1.76)
== END ==
LOC: M LAB REF 14:23
PROVIDERS: ATTEND Pediatrics
DX: E03.9 Hypothyroidism, unspecified (principal); R03.0 Elevated blood-pressure reading, without diagnosis of hypertension

== ENCOUNTER → 2025-02-14 | Outpatient (REF) | payer OTHER ==
[2025-02-14 12:59] LABS: APPEARANCE, URINE CLEAR (CLEAR); BACTERIA, URINE AUTO NEGATIVE (NEGATIVE); BILIRUBIN, URINE AUTO NEGATIVE (NEGATIVE); BLOOD, URINE BLOOD 1+ (NEGATIVE); COLOR, URINE YELLOW (YELLOW); GLUCOSE, URINE (UA) AUTO NEGATIVE (NEGATIVE); KETONE, URINE AUTO NEGATIVE (NEGATIVE); LEUKOCYTE ESTERASE, URINE AUTO NEGATIVE (NEGATIVE); NITRITE, URINE AUTO NEGATIVE (NEGATIVE); PROTEIN, URINE AUTO NEGATIVE (NEGATIVE); RBC, URINE AUTO 0 /HPF (0-3); SQUAMOUS EPITHELIAL CELL UR AU 2 /HPF (0-6); UROBILINOGEN, URINE AUTO 0.2 mg/dL (0.0-2.0); WBC, URINE AUTO 0 /HPF (0-3)
[2025-02-14 14:32] LABS: MALB URINE SIEMENS < 3.0 MG/L
[2025-02-14 14:33] LABS: CREATININE, URINE 46.4 MG/DL
== END ==
LOC: M LAB REF 12:19
PROVIDERS: ATTEND Pediatrics
DX: R03.0 Elevated blood-pressure reading, without diagnosis of hypertension (principal)